=== PATIENT | male | born 1995 | race Two or more races ===

== ENCOUNTER 2018-11-20 19:23 | Emergency (ER) | payer OTHER ==
[~2018-11-20] VITALS: Ht 170.2 cm; Wt 85.7 kg
[~2018-11-20 19:23] MED LIST: ACCUNEB1.25 MG/3; CARNITOR330 MG; GILTUSS TR1 TAB.SR .; TUSSI-PRES LIQ118 ML PO; VENTOLIN HFA18 GM; ZEGERID 40 MG C1 CAP; ZITHROMAX500 MG PO
[2018-11-22] MEDS ORDERED: ZANTAC150 M3 (17:54)
== END 2018-11-21 00:16 | disposition home or self-care (01) ==
LOC: ER 19:23
DX: R10.32 Left lower quadrant pain (principal)

== ENCOUNTER 2018-11-22 17:40 | Emergency (ER) | payer OTHER ==
[~2018-11-22] VITALS: Ht 170.2 cm; Wt 84.8 kg
[2018-11-22] MEDS ORDERED: ZANTAC150 M3 (17:54)
== END 2018-11-22 22:16 | disposition home or self-care (01) ==
LOC: ER 17:40
DX: K29.70 Gastritis, unspecified, without bleeding (principal)